=== PATIENT | male | born 1955 | race Two or more races ===

== ENCOUNTER 2025-05-29 13:27 | Inpatient (IN) | payer OTHER ==
[~2025-05-29] VITALS: Ht 165.1 cm; Wt 80.0 kg
--- NOTE | 2025-05-29 14:31 | DVH ---
CHEST RADIOGRAPH Indication: fall, weakness Technique: Single frontal view of the chest was obtained Comparison: None FINDINGS: Lines and Tubes: None Lungs: No focal consolidation. Pleura: No effusion. No pneumothorax. Cardiomediastinal contours: Unremarkable Bones: No acute osseous abnormality. IMPRESSION: 1. No acute cardiopulmonary disease.
--- NOTE | 2025-05-29 14:33 | ED.PDOC ---
History of Present Illness HPI Comments 70-year-old male presents to the ER with daughter and with prior medical history of high lipids in the chief complaint of the head injury. Patient reports having slipped and fell in the bathroom and hitting the posterior region of his head against the wall x3 days ago. Patient's states that he has been having worsening symptoms of dizzy spells, blurred vision, high blood pressure, dizziness, difficulty to ambulate, and bilateral feet and hand numbness. Denies any other symptoms at this time. Denies chills, fever, N/V/D, SOB, CP. No other associated symptoms, modifiers, recent injuries or sick contacts present at this time. Chief Complaint: Head Injury Time Seen by MD: 14:00 Reviewed Notes: Nurses Notes, Medications, Allergies Allergies: Coded Allergies: NO KNOWN ALLERGIES (Unverified , 05/29/25) Information Source: Patient, Relative (Child) Mode of Arrival: Ambulatory Severity: Moderate Timing: Days Duration: Since onset, Days Prehospital treatment: None Past Medical History PAST MEDICAL HISTORY: High Lipids Surgical History: Denies all surgeries Family History Family History: Reviewed,noncontributory to illness, Unknown Social History Smoker: Non-Smoker Alcohol: Denies ETOH Use Drugs: Denies Drug Use Lives In: Home Constitutional: denies: chills, diaphoresis, fatigue, fever, malaise, sweats, weakness, others EENTM: reports: blurred vision; denies: double vision, ear bleeding, ear discharge, ear drainage, ear pain, ear ringing, eye pain, eye redness, hearing loss, mouth pain, mouth swelling, nasal discharge, nose bleeding, nose congestion, nose pain, photophobia, tearing, throat pain, throat swelling, voice changes, others Respiratory: denies: cough, hemoptysis, orthopnea, SOB at rest, shortness of breath, SOB with excertion, stridor, wheezing, others Cardiovascular: reports: others (High blood pressure); denies: chest pain, dizzy spells, diaphoresis, Dyspnea on exertion, edema, irregular heart beat, left arm pain, lightheadedness, palpitations, PND, syncope Gastrointestinal: denies: abdomen distended, abdominal pain, blood streaked bowels, constipated, diarrhea, dysphagia, difficulty swallowing, hematemesis, melena, nausea, poor appetite, poor fluid intake, rectal bleeding, rectal pain, vomiting, others Genitourinary: denies: burning, dysuria, flank pain, frequency, hematuria, incontinence, penile discharge, penile sore, pain, testicle pain, testicle swelling, urgency, others Neurological: reports: dizziness (/dizzy spells); denies: fainting, headache, left sided numbness, left sided weakness, numbness, paresthesia, pre-existing deficit, right sided numbness, right sided weakness, seizure, speech problems, tingling, tremors, weakness, others Musculoskeletal: denies: back pain, gout, joint pain, joint swelling, muscle pain, muscle stiffness, neck pain, others Integumetry: denies: bruises, change in color, change in hair/nails, dryness, laceration, lesions, lumps, rash, wounds, others Allergic/Immunocompromised: denies: Difficulty Healing, Frequent Infections, Hives, Itching, others Hematologic/Lymphatic: denies: anemia, blood clots, easy bleeding, easy bruising, swollen glands, others Endocrine: denies: excessive hunger, excessive sweating, excessive thirst, excessive urination, flushing, intolerance to cold, intolerance to heat, unexplained weight gain, unexplained weight loss, others Psychiatric: denies: anxiety, bipolar disorder, depression, hopeless, panic disorder, schizophrenia, sleepless, suicidal, others All Other Systems: Reviewed and Negative Physical Exam Exam Comments Ill-appearing General Appearance: No Apparent Distress, Normal HEENT: Normal ENT Inspection, Pharynx Normal, TMs Normal Neck: Full Range of Motion, Non-Tender, Normal, Normal Inspection Respiratory: Chest Non-Tender, Lungs Clear, No Accessory Muscle Use, No Respiratory Distress, Normal Breath Sounds Cardiovascular: No Edema, No JVD, No Murmur, No Gallop, Normal Peripheral Pulses, Regular Rate/Rhythm Breast Exam: Deferred Gastrointestinal: No Organomegaly, Non Tender, No Pulsatile Mass, Normal Bowel Sounds, Soft Genitalia: Deferred Pelvic: Deferred Rectal: Deferred Extremities: No calf tenderness, Normal capillary refill, Normal inspection, Normal range of motion, Non-tender, No pedal edema Musculoskeletal : Apperance: Normal Neurologic: Alert, manager eligibility II-XII nml as Tested, No Motor Deficits, Normal Affect, Normal Mood, No Sensory Deficits Cerebellar Function: Normal Reflexes: Normal Skin: Dry, Normal Color, Warm Lymphatic: No Adenopathy Was a procedure done? Was a procedure done?: No EKG EKG : Pulse Rate (adult): 66 [place]: Normal Cardiac Rhythm: NSR Block: None Hypertrophy: None ST: Normal Differential Dx Considerations may include: ACS, CVA, viral syndrome, intracranial abnormality, CVA X-Ray, Labs, Meds, VS Vital Signs Date Time Temp Pulse Resp B/P (MAP) Pulse Ox O2 Delivery O2 Flow Rate FiO2 05/29/25 16:15 98.5 74 17 148/98 (115) 95 98.5 05/29/25 14:33 66 05/29/25 13:42 66 05/29/25 13:30 97.2 70 15 146/89 96 97.2 Lab Test 05/29/25 16:15 05/29/25 15:33 05/29/25 14:23 Range/Units Urine Color Yellow Yellow Urine Clarity Clear Clear Urine pH 6.5 5.0-9.0 Urine Specific Adkins 1.022 1.001-1.035 Urine Protein Negative Negative Urine Ketones Negative Negative Urine Blood Negative Negative /uL Urine Nitrite Negative Negative Urine Bilirubin Negative Negative Urine Urobilinogen Normal Negative mg/dL Urine Leukocyte Esterase Negative Negative /uL Urine RBC 1 0 - 3 /hpf Urine Microscopic WBC < 1 0-3 /HPF Urine Squamous Epithelial Cells Few <5 /hpf Urine Bacteria None seen None Seen /hpf Urine Glucose Normal Normal mg/dL Troponin I High Sensitivity 4 4 </=54 ng/L White Blood Count 5.4 4.4-10.8 10^3/uL Red Blood Count 4.76 4.5-5.90 10^6/uL Hemoglobin 16.1 13.5-17.5 g/dL Hematocrit 46.2 41.0-53.0 % Mean Corpuscular Volume 96.9 80.0-100.0 fL Mean Corpuscular Hemoglobin 33.9 H 28.0-32.0 pg Mean Corpuscular Hemoglobin Concent 35.0 32.0-36.0 g/dL Red Cell Distribution Width 12.5 11.8-14.3 % Platelet Count 146 140-450 10^3/uL Mean Platelet Volume 8.9 6.9-10.8 fL Neutrophils (%) (Auto) 64.0 37.0-80.0 % Lymphocytes (%) (Auto) 24.8 10.0-50.0 % Monocytes (%) (Auto) 9.7 0.0-12.0 % Eosinophils (%) (Auto) 1.1 0.0-7.0 % Basophils (%) (Auto) 0.4 0.0-2.0 % Neutrophils # (Auto) 3.5 1.6-8.6 10 ^3/uL Lymphocytes # (Auto) 1.3 0.4-5.4 10 ^3/uL Monocytes # (Auto) 0.5 0-1.3 10 ^3/uL Eosinophils # (Auto) 0.1 0-0.8 10 ^3/uL Basophils # (Auto) 0 0-0.2 10 ^3/uL Nucleated Red Blood Cells 0.2 % Sodium Level 142 136-145 mmol/L Potassium Level 3.9 3.5-5.1 mmol/L Chloride Level 106 98-107 mmol/L Carbon Dioxide Level 24 20-31 mmol/L Anion Gap 12 5-15 Blood Urea Nitrogen 12 9-23 mg/dL Creatinine 0.97 0.700-1.30 mg/dL Glomerular Filtration Rate Calc 84 >90 mL/min BUN/Creatinine Ratio 12.4 10.0-20.0 Serum Glucose 106 74-106 mg/dL Calcium Level 9.7 8.7-10.4 mg/dL Time of 1ST Reevaluation: 14:30 Reevaluation 1ST: Unchanged Patient Education/Counseling: Diagnosis, Treatment, Prognosis Family Education/Counseling: No Family Present SEPSIS Sepsis Screen Date sepsis recognized/suspect: May 29, 2025 Time Sepsis recognized/suspect: 1333 Recent Procedure: No On Antibiotic Therapy: No Respiratory Rate >20: No Heart Rate >90: No Temp<36 C (96.8 F) or >38.3 C: No SBP <90 or MAP <65 mmHG: No New Acute Mental Status Change: No Is the patient on CPAP, BIPAP,: No Physician Orders Electrocardigram (05/29/25 13:36) Chest Portable (05/29/25 13:53) Head Without Contrast (05/29/25 13:53) Vital Signs Date Time Temp Pulse Resp B/P (MAP) Pulse Ox O2 Delivery O2 Flow Rate FiO2 05/29/25 16:15 98.5 74 17 148/98 (115) 95 98.5 05/29/25 14:33 66 05/29/25 13:42 66 05/29/25 13:30 97.2 70 15 146/89 96 97.2 Laboratory Tests Test 05/29/25 14:23 White Blood Count 5.4 10^3/uL (4.4-10.8) Departure 1 Departure Time of Disposition: 17:57 (Patient with a worsening weakness and severe headache after head injury. Patient also generalized fatigue. We will admit patient for further workup and rule out CVA) Impression: Primary Impression: Near syncope Additional Impressions: Generalized weakness Lower extremity weakness Migraine Disposition: ADMITTED INPATIENT Admit to: Med Surg Condition: Guarded Critical Care Note Critical Care Time?: Yes Critical care comment: Concern for CVA Authorized and Performed by: Hany Tam MD Total critical care time: Approximately 41 minutes Due to a high probability of clinically significant, life threatening deterioration, the patient required my highest level of preparedness to intervene emergently and I personally spent this critical care time directly and personally managing the patient. This critical care time included obtaining a history; examining the patient; pulse oximetry; ordering and review of studies; arranging urgent treatment with development of a management plan; evaluation of patient's response to treatment; frequent reassessment; and, discussions with other providers. This critical care time was performed to assess and manage the high probability of imminent, life-threatening deterioration that could result in multi-organ failure. It was exclusive of separately billable procedures and treating other patients and teaching time. Please see my other sections and the rest of the note for further information on patient assessment and treatment. Stability Stability form required: No I personally scribed for HANY TAM MD ([email or web address]) on 05/29/25 at 14:33. Electronically submitted by Skinny Sosa ([email or web address]). HANY TAM MD May 29, 2025 14:33
[2025-05-29 14:40] LABS: Hematocrit 46.2 % (41.0-53.0); Hemoglobin 16.1 g/dL (13.5-17.5); Mean Corpuscular Hemoglobin 33.9 pg (28.0-32.0); Mean Corpuscular Volume 96.9 fL (80.0-100.0); Nucleated Red Blood Cells % 0.2 %
--- NOTE | 2025-05-29 14:44 | DVH ---
CT HEAD WITHOUT CONTRAST INDICATION: fall, weakness EXAM DATE: 05/29/2025 02:07 PM COMPARISON: None RADIATION DOSE: CTDIvol: 56.63 mGy, DLP: 1002.53 mGy*cm PROCEDURE: CT scans of the head were obtained from the vertex to the skull base. Sagittal and coronal reconstructions were provided. All CT scans at this medical facility are performed using dose modulation techniques as appropriate to a performed exam including the following: Automated exposure control was utilized; adjustment of the MA and/or KV according to patient size; and use of iterative reconstruction technique. d FINDINGS: There is sulcal and ventricular prominence. The brainshows normal morphology and monae-white matter differentiation, without intracranial hemorrhage, extra-axial fluid collection, mass effect or acute large vessel infarct. The ventricles are normal in size. The basal cisterns are patent. The skull and visible facial bones are intact. The paranasal sinuses, mastoid air cells and middle ear cavities are well-aerated. The soft tissues of the scalp are unremarkable. IMPRESSION: No acute intracranial abnormality.
[2025-05-29 14:50] LABS: Chloride 106 mmol/L (98-107); Potassium 3.9 mmol/L (3.5-5.1); Sodium 142 mmol/L (136-145)
[2025-05-29 14:51] LABS: Anion Gap 12 (5-15); Carbon Dioxide 24 mmol/L (20-31)
[2025-05-29 14:52] LABS: Calcium 9.7 mg/dL (8.7-10.4)
[2025-05-29 14:56] LABS: BUN/Creatinine Ratio 12.4 (10.0-20.0); Blood Urea Nitrogen 12 mg/dL (9-23); Glucose 106 mg/dL (74-106)
[2025-05-29 17:28] LABS: Urine Protein, UAD Negative (Negative)
--- NOTE | 2025-05-29 21:23 | DVHHPRES ---
History of Present Illness Resident Creating Document: PAYAM FONTAINE RESIDENT History of Present Illness Chief complaints: Vomiting, vertigo following head injury Roberto Prasad, 70-year-old male with previous history of prediabetes, episodes of high blood pressure not on antihypertensive medications, anxiety presented to the ER following traumatic fall while taking shower in the bathtub, he slipped on the soap, he denies episodes of syncope or dizziness before the fall. He hit his back of the head hard against the bed, initially he felt better after taking naproxen. However, 1 day after he started having episodes of vertigo and intractable nausea and vomiting. He reports feeling dizziness, he explained the dizziness as the world spinning around him. He denies any recent ear infection or pneumonia. The patient reports having recent UTI (however, admission urinalysis normal). The patient says "he was walking like a duck after the fall", possible ataxia. He also reports having episodes of extreme anxiety, the patient was prescribed Prozac, however, he did not take the medicine due to concerns for side effects including suicidal ideation. The patient also reports tingling and numbness on the feet. He denies any claudication (does not have to rest after walking for a while). Past surgical history: ESWL due to renal stone Family history: Early MIs in uncle and aunt. 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 Chavez Code status: Full code Review of Systems Allergies: Coded Allergies: NO KNOWN ALLERGIES (Unverified , 05/29/25) Medications Current Medications Medications Dose Ordered Sig/Matt Route Start Time Stop Time Status Last Admin Dose Admin Nitroglycerin 0.4 mg Q5MINP PRN SL 05/29/25 21:30 UNV Morphine Sulfate 2 mg Q30M PRN IV 05/29/25 21:30 UNV Exam Vital Signs Vital Signs Date Time Temp Pulse Resp B/P (MAP) Pulse Ox O2 Delivery O2 Flow Rate FiO2 05/29/25 16:15 98.5 74 17 148/98 (115) 95 98.5 Exam Pt is lying on bed General Appearance: Sitting in a wheelchair due to vertigo, Alert, Oriented X3, Cooperative, Mild distress HEENT: Atraumatic, Mucous membranes moist/pink Respiratory: Clear to auscultation, Normal air movement, No added sounds Cardiovascular: Regular rate, Normal S1, Normal S2, No murmurs Abdominal/ : Active bowel sounds, Soft, no distention, no tenderness Extremities: No edema, Normal pulses, No tenderness/swelling Skin: No Significant rash, except past surgical scars Neuro: Normal speech, sensorimotor deficits none Psych/Mental Status: Mental status NL, Mood NL Nurse was there as travograph operator during examination Labs/Xrays Labs Test 05/29/25 16:15 05/29/25 15:33 05/29/25 14:23 Range/Units Urine Color Yellow Yellow Urine Clarity Clear Clear Urine pH 6.5 5.0-9.0 Urine Specific [place] 1.022 1.001-1.035 Urine Protein Negative Negative Urine Ketones Negative Negative Urine Blood Negative Negative /uL Urine Nitrite Negative Negative Urine Bilirubin Negative Negative Urine Urobilinogen Normal Negative mg/dL Urine Leukocyte Esterase Negative Negative /uL Urine RBC 1 0 - 3 /hpf Urine Microscopic WBC < 1 0-3 /HPF Urine Squamous Epithelial Cells Few <5 /hpf Urine Bacteria None seen None Seen /hpf Urine Glucose Normal Normal mg/dL Troponin I High Sensitivity 4 </=54 ng/L White Blood Count 5.4 4.4-10.8 10^3/uL Red Blood Count 4.76 4.5-5.90 10^6/uL Hemoglobin 16.1 13.5-17.5 g/dL Hematocrit 46.2 41.0-53.0 % Mean Corpuscular Volume 96.9 80.0-100.0 fL Mean Corpuscular Hemoglobin 33.9 H 28.0-32.0 pg Mean Corpuscular Hemoglobin Concent 35.0 32.0-36.0 g/dL Red Cell Distribution Width 12.5 11.8-14.3 % Platelet Count 146 140-450 10^3/uL Mean Platelet Volume 8.9 6.9-10.8 fL Neutrophils (%) (Auto) 64.0 37.0-80.0 % Lymphocytes (%) (Auto) 24.8 10.0-50.0 % Monocytes (%) (Auto) 9.7 0.0-12.0 % Eosinophils (%) (Auto) 1.1 0.0-7.0 % Basophils (%) (Auto) 0.4 0.0-2.0 % Neutrophils # (Auto) 3.5 1.6-8.6 10 ^3/uL Lymphocytes # (Auto) 1.3 0.4-5.4 10 ^3/uL Monocytes # (Auto) 0.5 0-1.3 10 ^3/uL Eosinophils # (Auto) 0.1 0-0.8 10 ^3/uL Basophils # (Auto) 0 0-0.2 10 ^3/uL Nucleated Red Blood Cells 0.2 % Sodium Level 142 136-145 mmol/L Potassium Level 3.9 3.5-5.1 mmol/L Chloride Level 106 98-107 mmol/L Carbon Dioxide Level 24 20-31 mmol/L Anion Gap 12 5-15 Blood Urea Nitrogen 12 9-23 mg/dL Creatinine 0.97 0.700-1.30 mg/dL Glomerular Filtration Rate Calc 84 >90 mL/min BUN/Creatinine Ratio 12.4 10.0-20.0 Serum Glucose 106 74-106 mg/dL Calcium Level 9.7 8.7-10.4 mg/dL SEPSIS Sepsis Screen Date sepsis recognized/suspect: May 29, 2025 Time Sepsis recognized/suspect: 3 Recent Procedure: No On Antibiotic Therapy: No Respiratory Rate >20: No Heart Rate >90: No Temp<36 C (96.8 F) or >38.3 C: No SBP <90 or MAP <65 mmHG: No New Acute Mental Status Change: No Is the patient on CPAP, BIPAP,: No Physician Orders Electrocardigram (05/29/25 13:36) Chest Portable (05/29/25 13:53) Head Without Contrast (05/29/25 13:53) Cardiac Diet-2gna,Lofat,Lochol (05/29/25 Dinner) Admit (05/29/25 21:16) Nitroglycerin Sublingual (Ntrostat Subli (05/29/25 21:30) Morphine Sulfate Injection (05/29/25 21:30) Oxygen By Nasal Cannula (05/29/25 21:16) Stat Ekg For Chest Pain (05/29/25 21:16) Notify Md Of Changes From Base (05/29/25 21:16) Plastic Fixture Builder For 24 Hours (05/29/25 21:16) Emergency Dysrhythmia Protocol (05/29/25 21:16) Rhythm Strips Once Every Shift (05/29/25 21:16) Code Status (05/29/25 21:16) Covid19 Antigen Concepcion (05/29/25 ) Rapid Influenza A&B (05/29/25 21:19) Echo 2d Mode Cardiac Dop (05/29/25 21:19) Carotid Duplx W Color Dop (05/29/25 21:19) Orthostatic Vital Signs (05/29/25 21:19) Drug Screen (05/29/25 21:19) Sodium Chloride 0.9% (05/29/25 21:30) Ondansetron Hcl (Zofran) (05/29/25 21:30) Vital Signs Date Time Temp Pulse Resp B/P (MAP) Pulse Ox O2 Delivery O2 Flow Rate FiO2 05/29/25 16:15 98.5 74 17 148/98 (115) 95 98.5 05/29/25 14:33 66 05/29/25 13:42 66 05/29/25 13:30 97.2 70 15 146/89 96 97.2 Laboratory Tests Test 05/29/25 14:23 White Blood Count 5.4 10^3/uL (4.4-10.8) Assessment/Plan Assessment/Plan Traumatic head injury with intractable vomiting Acute metabolic encephalopathy ruled out Dehydration due to intractable vomiting Dizziness or giddiness Rule out cardiac syncope Rule out BPPV Head CT: No acute abnormality IV fluid IV ondansetron EKG: No acute ischemic changes Carotid ultrasound ordered Echocardiography ordered Perform Floyd-Hallpike GI prophylaxis: Pantoprazole DVT prophylaxis: Lovenox Diet: Regular Goals of care discussed with the patient for more than 27 minutes: Full code st atus Case discussed with Dr. Dias , patient and RN Plan discussed with: Patient (RN) My Orders Orders - ZHEN,PAYAM RESIDENT Procedure Category Date Status Time Admit ADMIT 05/29/25 Transmitted 21:16 Nitroglycerin PHA 05/29/25 Logged Sublingual (Ntrostat 21:30 Morphine Sulfate PHA 05/29/25 Logged Injection 21:30 Oxygen By Nasal RT 05/29/25 Transmitted Cannula 21:16 Stat Ekg For Chest YOHANA 05/29/25 In Process Pain 21:16 Notify Md Of Changes YOHANA 05/29/25 In Process From Base 21:16 Plastic Fixture Builder For [facility] 05/29/25 In Process 24 Hours 21:16 Emergency Dysrhythmia [facility] 05/29/25 In Process Protocol 21:16 Rhythm Strips Once [facility] 05/29/25 In Process Every Shift 21:16 Code Status CODE 05/29/25 Transmitted 21:16 Covid19 Antigen Concepcion LAB 05/29/25 Transmitted Rapid Influenza A&B LAB 05/29/25 Transmitted 21:19 Echo 2d Mode Cardiac US 05/29/25 Logged DOP 21:19 Carotid Duplx W Color US 05/29/25 Logged DOP 21:19 Orthostatic Vital ORDERS 05/29/25 Transmitted Signs 21:19 Drug Screen LAB 05/29/25 Transmitted 21:19 Sodium Chloride 0.9% PHA 05/29/25 Logged 21:30 Ondansetron Hcl PHA 05/29/25 Transmitted (Zofran) 21:30 Date of Service: May 29, 2025 Billing Provider: DIAMOND DIAS MD [facility] [place] RESIDENT May 29, 2025 21:23
[2025-05-29] MEDS ORDERED: MORPHINE SULFATE INJ 2 MG/ml SYRG IV PRN (21:30)
[2025-05-29] MEDS ORDERED: SODIUM CHLORIDE 0.9% 1,000 ML IV ONE (21:30)
[2025-05-29] MEDS ORDERED: NITROGLYCERIN 0.4 MG SL TAB SL PRN (21:30)
[2025-05-29] MEDS: ONDANSETRON HCL 4 MG/2 ML VIAL IV ONE (23:38)
[2025-05-30 00:06] VITALS: PULSE 68; RESP 20; O2SAT 96
[2025-05-30 00:14] VITALS: BP 142/87; PULSE 68; RESP 20; TEMP 97.8; O2SAT 96
[2025-05-30 00:29] LABS: COVID19 ANTIGEN SOFIA FIA NEGATIVE (NEGATIVE)
--- NOTE | 2025-05-30 06:11 | DVHDSRES ---
Discharge Summary Date of Admission Resident Creating Document: PAYAM FONTAINE May 29, 2025 at 21:16 Date of Discharge: May 30, 2025 Admitting Diagnosis Near-syncope Labs/Diagnostic Data: Laboratory Results Test 05/29/25 23:35 05/29/25 16:15 05/29/25 15:33 05/29/25 14:23 Influenza Type A Antigen Negative (Negative) Influenza Type B Antigen Negative (Negative) SARS-CoV-2 Antigen (Rapid) Negative (NEGATIVE) Urine Color Yellow (Yellow) Urine Clarity Clear (Clear) Urine pH 6.5 (5.0-9.0) Urine Specific [place] 1.022 (1.001-1.035) Urine Protein Negative (Negative) Urine Ketones Negative (Negative) Urine Blood Negative /uL (Negative) Urine Nitrite Negative (Negative) Urine Bilirubin Negative (Negative) Urine Urobilinogen Normal mg/dL (Negative) Urine Leukocyte Esterase Negative /uL (Negative) Urine RBC 1 /hpf (0 - 3) Urine Microscopic WBC < 1 /HPF (0-3) Urine Squamous Epithelial Cells Few /hpf (<5) Urine Bacteria None seen /hpf (None Seen) Urine Glucose Normal mg/dL (Normal) Troponin I High Sensitivity 4 ng/L (</=54) White Blood Count 5.4 10^3/uL (4.4-10.8) Red Blood Count 4.76 10^6/uL (4.5-5.90) Hemoglobin 16.1 g/dL (13.5-17.5) Hematocrit 46.2 % (41.0-53.0) Mean Corpuscular Volume 96.9 fL (80.0-100.0) Mean Corpuscular Hemoglobin 33.9 pg (28.0-32.0) Mean Corpuscular Hemoglobin Concent 35.0 g/dL (32.0-36.0) Red Cell Distribution Width 12.5 % (11.8-14.3) Platelet Count 146 10^3/uL (140-450) Mean Platelet Volume 8.9 fL (6.9-10.8) Neutrophils (%) (Auto) 64.0 % (37.0-80.0) Lymphocytes (%) (Auto) 24.8 % (10.0-50.0) Monocytes (%) (Auto) 9.7 % (0.0-12.0) Eosinophils (%) (Auto) 1.1 % (0.0-7.0) Basophils (%) (Auto) 0.4 % (0.0-2.0) Neutrophils # (Auto) 3.5 10 ^3/uL (1.6-8.6) Lymphocytes # (Auto) 1.3 10 ^3/uL (0.4-5.4) Monocytes # (Auto) 0.5 10 ^3/uL (0-1.3) Eosinophils # (Auto) 0.1 10 ^3/uL (0-0.8) Basophils # (Auto) 0 10 ^3/uL (0-0.2) Nucleated Red Blood Cells 0.2 % Sodium Level 142 mmol/L (136-145) Potassium Level 3.9 mmol/L (3.5-5.1) Chloride Level 106 mmol/L (98-107) Carbon Dioxide Level 24 mmol/L (20-31) Anion Gap 12 (5-15) Blood Urea Nitrogen 12 mg/dL (9-23) Creatinine 0.97 mg/dL (0.700-1.30) Glomerular Filtration Rate Calc 84 mL/min (>90) BUN/Creatinine Ratio 12.4 (10.0-20.0) Serum Glucose 106 mg/dL (74-106) Calcium Level 9.7 mg/dL (8.7-10.4) Other Laboratory Tests 05/29/25 14:23 Brief Hx & Hospital Course: Roberto Prasad, 70-year-old male with previous history of prediabetes, episodes of high blood pressure not on antihypertensive medications, anxiety presented to the ER following traumatic fall while taking shower in the bathtub, he slipped on the soap, he denies episodes of syncope or dizziness before the fall. He hit his back of the head hard against the bed, initially he felt better after taking naproxen. However, 1 day after he started having episodes of vertigo and intractable nausea and vomiting. He reports feeling dizziness, he explained the dizziness as the world spinning around him. He denies any recent ear infection or pneumonia. The patient reports having recent UTI (however, admission urinalysis normal). The patient says "he was walking like a duck after the fall", possible ataxia. He also reports having episodes of extreme anxiety, the patient was prescribed Prozac, however, he did not take the medicine due to concerns for side effects including suicidal ideation. The patient also reports tingling and numbness on the feet. He denies any claudication (does not have to rest after walking for a while). Past surgical history: ESWL due to renal stone Family history: Early MIs in uncle and aunt. 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 Chavez Code status: Full code Hospital course: The patient was started on IV fluid, ondansetron, head CT was negative. EKG was unremarkable, echocardiography was pending. Carotid ultrasound was ordered. However, the patient left AMA due to unbearable wait time, patient was explained the consequences of leaving AMA, he verbalized understanding and chose to leave against medical advice. Patient was encouraged to return if the symptoms persist. Condition at Discharge: Undetermined Final Diagnosis/Problems List Near syncopal event Discharge Disposition: AMA Discharge Statement: "Patient was advised to return to the ER or call 911 if any headaches, dizziness, shortness of breath, chest pain, abdominal pain, bleeding, fevers, or worsening of medical condition. Patient was counseled about treatment plan, medications, possible side effects, patientverbalized understanding. All questions were answered to the best of my ability. This discharge took greater then 30 minutes in planning, reviewing documentation, counseling the patient, and discussing with other team members." ASSESSMENT ASSESSMENT Assessment PAYAM FONTAINE RESIDENT May 30, 2025 06:11
[2025-05-30] MEDS ORDERED: ENOXAPARIN SOD 40 MG/0.4 ML SYRINGE SC SCH (10:00)
[2025-05-30] MEDS ORDERED: PANTOPRAZOLE 40 MG/10 ML VIAL INJ IV SCH (10:00)
--- NOTE | 2025-05-30 11:13 | ECG ---
[facility] Test Date: 2025-05-29 Test Time: 13:42:47 Pat Name: BEULAH LOREDO Department: ED Room: [address] [place] [address] A Gender: M Car J[employer]: LISHA : 1955 Requested By: HANY FINCH Order Number: [id number] Reading MD: Erik Baig Measurements Intervals [place] Rate: 66 P: 71 UT: 140 QRS: 13 QRSD: 92 T: 86 QT: 416 QTc: 436 Interpretive Statements Sinus rhythm Low voltage, precordial leads Nonspecific T abnrm, anterolateral leads Electronically Signed On 05-31-2025 17:55:46 PST by Erik Baig Please click the below link to view image of tracing.
== END 2025-05-30 02:30 | disposition left against medical advice (07) | DRG 312 ==
LOC: ER 13:27 → OVERFLOW 21:16
PROVIDERS: ADMIT Emergency Medicine; ATTEND Emergency Medicine
DX: R55 Syncope and collapse (principal); S09.90XA Unspecified injury of head, initial encounter; E86.0 Dehydration; F41.9 Anxiety disorder, unspecified; G43.909 Migraine, unspecified, not intractable, without status migrainosus; Z53.29 Procedure and treatment not carried out because of patient's decision for other reasons; Z20.822 Contact with and (suspected) exposure to COVID-19; R27.0 Ataxia, unspecified; Z87.440 Personal history of urinary (tract) infections; W01.0XXA Fall on same level from slipping, tripping and stumbling without subsequent striking against object, initial encounter; Y93.E1 Activity, personal bathing and showering; Y92.89 Other specified places as the place of occurrence of the external cause; Y99.8 Other external cause status
CPT/HCPCS: 36415; 70450; 71045; 80048; 81001; 84484; 85025; 87426; 87804; 93005; 99291; G0378; J2405